=== PATIENT | female | born 1965 | race Caucasian/White ===

== ENCOUNTER → 2017-07-25 | Outpatient (CLI) | payer OTHER | END | disposition home or self-care (01) | LOC: C.PAPS 16:35 | PROVIDERS: ATTEND Obstetrics & Gynecology | DX: Z12.4 Encounter for screening for malignant neoplasm of cervix (principal) ==

== ENCOUNTER → 2017-07-26 | Outpatient (CLI) | payer OTHER ==
[2017-07-26 17:08] LABS: ALT/SGPT 43 U/L (12-78); AST/SGOT 23 U/L (15-37); BLOOD UREA NITROGEN 8 mg/dl (7-18); CALCIUM 9.2 mg/dl (8.5-10.1); CARBON DIOXIDE 29 mmol/L (21-32); CHLORIDE 105 mmol/L (98-107); CHOLESTEROL 226 mg/dl (0-200); GLUCOSE 76 mg/dl (70-99); POTASSIUM 4.1 mmol/L (3.5-5.1); SODIUM 140 mmol/L (136-145)
[2017-07-26 17:18] LABS: ALB/GLOB RATIO 1.1 (0.9-2); ALKALINE PHOSPHATASE 92 U/L (45-117); CHOLESTEROL/HDL RATIO 6.5; HDL CHOLESTEROL 35 mg/dl; LDL CHOLESTEROL CALCULATED 131 mg/dl; THYROID STIMULATING HORMONE 0.691 uIu/ml (0.300-4.500); TRIGLYCERIDES 298 mg/dl (0-150); VERY LOW DENSITY LIPOPROT CALC 60 mg/dl
== END | disposition home or self-care (01) ==
LOC: C.LAB 14:56
PROVIDERS: ATTEND Internal Medicine
DX: E03.9 Hypothyroidism, unspecified (principal); E78.5 Hyperlipidemia, unspecified

== ENCOUNTER → 2018-06-05 | Day surgery (SDC) | payer OTHER ==
[2018-06-04 14:52] VITALS: Ht 176.5 cm; Wt 78.6 kg
[~2018-06-05] VITALS: Ht 176.5 cm; Wt 78.6 kg
[~2018-06-05] MED LIST: AMPH20TA2 PO; ASCO500T3 PO; ATOR10TA82 PO; B-COTAB18 PO; BUPR-79 PO; CALC500C70 PO; CONJ.6255 PO; ESCI1TAB10 PO; FLUT50SP45 NAE; LEVO50TA6 PO; LIDOCAINE HCL 2% 2 ML VIAL (20MG/ML) ONE; MIDAZOLAM HCL 1 MG/ML 2ML VIAL ONE; MULT-580 PO; OMEG10007 PO; ONDANSETRON INJ 2 MG/ML 2 ML VIAL ONE; PANT40TA PO; PROPOFOL IV EMULSION 10 MG/ML 20 ML VIAL ONE; RANI1TAB77 PO; SODIUM CHLORIDE 0.9% 500ML 500 ML IV ONE; SUMA50TA15 PO; TRAM-453 PO; VITA1TAB12 PO
--- NOTE | 2018-06-05 15:36 | Endo History and Physical ---
History & Physical Date of Service: Jun 05, 2018. Chief Complaint: Stomach ulcers Referring Physician: Dr. Staton History of Present Illness 52 yo CF who presents for EGD secondary to stomach ulcers. Past Surgical History Hx Cardiac Surgery: No Hx Internal Defibrillator: No Hx Pacemaker: No Hx Abdominal Surgery: Yes (ANORECTAL MALFORMATION CORRECTIVE SURGERY-INFANT) Hx of Implantable Prosthesis: No Hx Post-Op Nausea and Vomiting: No Hx Cancer Surgery: No Hx Thoracic Surgery: No Hx Orthopedic: No Hx Urinary Tract Surgery: No Social History Smoking Status: Former Smoker Hx Substance Use: Yes (TRAMADOL PRN) Hx Alcohol Use: Yes (OCC SOCIAL) Allergies Coded Allergies: No Known Allergies (Verified , 06/04/18) Current Medications Reported Home Medications Medications Dose Route/Sig Max Daily Dose Days Date Category Ranitidine [address] (Ranitidine HCl) 150 Mg Tab 150 Mg PO BID 06/04/18 Reported Protonix (Pantoprazole Sodium) 40 Mg Tab 40 Mg PO QAM 06/04/18 Reported Hair/Skin/Nails (Multiple Vitamins W/ Minerals) 1 Tab Tab 1 Tab PO QAM 03/25/18 Reported Vitamin E 100 Unit Tab 1 Tab PO QAM 03/25/18 Reported Vitamin C (Ascorbic Acid) 500 Mg Tab 1 Tab PO QPM 03/25/18 Reported Ultram (Tramadol Hcl) 50 Mg Tab 1 Tab PO Q12 PRN 7 03/25/18 Reported Imitrex (Sumatriptan Succinate) 50 Mg Tab 50-100 Mg PO PRN PRN 03/25/18 Reported Prempro 0.625MG/2.5MG (Estrogens Conj/Medroxyprogest Acet) Tab 1 Tab PO QAM 30 03/25/18 Reported Levothyroxine Sodium 50 Mcg Tab 1 Tab PO QAM 30 03/25/18 Reported Allergy Nasal [place] 24 Ho (Fluticasone Propionate (Nasal)) 50 Mcg/Act Spr 1 [place] LIZ BID PRN 03/25/18 Reported [place]-3 (Fish Oil) 1 Ea Cap 1 Cap PO QAM 03/25/18 Reported Lexapro (Escitalopram Oxalate) 20 Mg Tab 20 Mg PO QPM 03/25/18 Reported Os-Chandler 500 Plus D (Calcium/Vitamin D) Tab 1 Tab PO QAM 03/25/18 Reported Vitamin B Complex (B-Complex Vitamins) 1 Tab Tab 1 Tab PO QAM 5/29/18 Reported Lipitor (Atorvastatin Calcium) 10 Mg Tab 1 Tab PO HS 30 03/25/18 Reported Adderall 20MG (Amphetamine-Dextroamphetamine 20MG) 1 Tab Tab 1 Tab PO PRN 30 03/25/18 Reported Wellbutrin Sr (Bupropion HCl) 150 Mg Ertab 150 Mg PO BID 03/25/18 Reported Vital Signs Weight (Kilograms): 78.64 Height (Feet): 5 Height (Inches): 9.5 Date Time Temp Pulse Resp B/P (MAP) Pulse Ox O2 Delivery O2 Flow Rate FiO2 06/05/18 14:46 37 88 18 109/77 (88) 94 Room Air Physical Exam General Appearance: WD/WN, no apparent distress Respiratory/Chest: Auscultation: breath sounds normal Cardiovascular: Heart Auscultation: RRR Abdomen: Bowel Sounds: normal Inspection & Palpation: soft, non-distended, no tenderness, guarding & rebound Assessment and Plan Assessment: 52 yo CF who presents for EGD secondary to stomach ulcers. Plan: Proceed with EGD.
[2018-06-05 16:33] VITALS: BP 118/60; PULSE 77; O2SAT 93
--- NOTE | 2018-06-05 16:33 | GI REPORT ---
Patient Name: Cierra Jacques Procedure Date: 06/05/2018 3:39 PM Date of : 1965 Admit Type: Outpatient Age: 52 Gender: Female Attending MD: Neel Obrien DO Procedure: Upper GI endoscopy Providers: Neel Obrien DO Referring MD: Faustino Staton Indications: Suspected acute gastric ulcer Medicines: Monitored Anesthesia Care Complications: No immediate complications. Estimated Blood Loss: Estimated blood loss: none. Procedure: Pre-Anesthesia Assessment: - Prior to the procedure, a History and Physical was performed, and patient medications and allergies were reviewed. The patient's tolerance of previous anesthesia was also reviewed. The risks and benefits of the procedure and the sedation options and risks were discussed with the patient. All questions were answered, and informed consent was obtained. Prior Anticoagulants: The patient has taken no previous anticoagulant or antiplatelet agents. ASA Grade Assessment: II - A patient with mild systemic disease. After reviewing the risks and benefits, the patient was deemed in satisfactory condition to undergo the procedure. After obtaining informed consent, the endoscope was passed under direct vision. Throughout the procedure, the patient's blood pressure, pulse, and oxygen saturations were monitored continuously. The scope was introduced through the mouth, and advanced to the second part of duodenum. The upper GI endoscopy was accomplished without difficulty. The patient tolerated the procedure well. Findings: The esophagus was normal. A small hiatal hernia was present. Localized mild inflammation characterized by erosions was found in the gastric antrum. Biopsies were taken with a cold forceps for histology. The examined duodenum was normal. Impression: - Normal esophagus. - Small hiatal hernia. - Gastritis. Biopsied. - Normal examined duodenum. Recommendation: - Resume previous diet. - Continue present medications. - Await pathology results. - Return to primary care physician as previously scheduled. Neel Obrien DO 06/05/2018 4:33:31 PM This report has been signed electronically. Note Initiated On: 06/05/2018 3:39 PM Number of Addenda: 0 I attest to the content of the Intraoperative Record and orders documented therein, exceptions below {[id number]}
--- NOTE | 2018-06-05 16:55 | Anesthesiology Progress Note ---
Anesthesia Post Op Note Date & Time Jun 05, 2018 at 16:55 Vital Signs Pain Intensity: 0 Vital Signs Past 12 Hours Date Time Temp Pulse Resp B/P (MAP) Pulse Ox O2 Delivery O2 Flow Rate FiO2 06/05/18 16:33 77 18 118/60 (79) 93 Room Air 06/05/18 16:18 73 18 110/49 (69) 94 Room Air 06/05/18 16:03 37 83 16 91/52 (65) 97 Room Air 06/05/18 14:46 37 88 18 109/77 (88) 94 Room Air Notes Mental Status: alert / awake / arousable, participated in evaluation Pt Amnestic to Procedure: Yes Nausea / Vomiting: adequately controlled Pain: adequately controlled Airway Patency, RR, SpO2: stable & adequate BP & HR: stable & adequate Hydration State: stable & adequate Anesthetic Complications: no major complications apparent
--- NOTE | 2018-06-05 16:59 | Discharge Instructions ---
Endoscopy Patient Instructions Date / Procedure(s) Performed Jun 05, 2018. EGD Allergy Information Coded Allergies: No Known Allergies (Verified , 06/04/18) Discharge Date / Findings Jun 05, 2018. Gastritis s/p biopsies Hiatal hernia Medication Instructions Stopped Medication(s): Patient was told to take 4 meds this am. All others were held. OK to resume all medications today as prescribed Reported Home Medications Medications Dose Route/Sig Max Daily Dose Days Date Category Ranitidine [address] (Ranitidine HCl) 150 Mg Tab 150 Mg PO BID 06/04/18 Reported Protonix (Pantoprazole Sodium) 40 Mg Tab 40 Mg PO QAM 06/04/18 Reported Hair/Skin/Nails (Multiple Vitamins W/ Minerals) 1 Tab Tab 1 Tab PO QAM 03/25/18 Reported Vitamin E 100 Unit Tab 1 Tab PO QAM 03/25/18 Reported Vitamin C (Ascorbic Acid) 500 Mg Tab 1 Tab PO QPM 03/25/18 Reported Ultram (Tramadol Hcl) 50 Mg Tab 1 Tab PO Q12 PRN 7 03/25/18 Reported Imitrex (Sumatriptan Succinate) 50 Mg Tab 50-100 Mg PO PRN PRN 03/25/18 Reported Prempro 0.625MG/2.5MG (Estrogens Conj/Medroxyprogest Acet) Tab 1 Tab PO QAM 30 03/25/18 Reported Levothyroxine Sodium 50 Mcg Tab 1 Tab PO QAM 30 03/25/18 Reported Allergy Nasal [place] 24 Ho (Fluticasone Propionate (Nasal)) 50 Mcg/Act Spr 1 [place] LIZ BID PRN 03/25/18 Reported [place]-3 (Fish Oil) 1 Ea Cap 1 Cap PO QAM 03/25/18 Reported Lexapro (Escitalopram Oxalate) 20 Mg Tab 20 Mg PO QPM 03/25/18 Reported Os-Chandler 500 Plus D (Calcium/Vitamin D) Tab 1 Tab PO QAM 03/25/18 Reported Vitamin B Complex (B-Complex Vitamins) 1 Tab Tab 1 Tab PO QAM 03/25/18 Reported Lipitor (Atorvastatin Calcium) 10 Mg Tab 1 Tab PO HS 30 03/25/18 Reported Adderall 20MG (Amphetamine-Dextroamphetamine 20MG) 1 Tab Tab 1 Tab PO PRN 30 03/25/18 Reported Wellbutrin Sr (Bupropion HCl) 150 Mg Ertab 150 Mg PO BID 03/25/18 Reported Provider Instructions Activity Restrictions - No exercising or heavy lifting for 24 hours. - Do not drink alcohol the day of the procedure. - Do not drive a car or operate machinery until the day after the procedure. - Do not make any important decisions or sign important papers in 24 hours after the procedure. Following Day: - Return to full activity which may include returning to work/school. Diet Start your diet with liquids and light foods (jello, soup, juice, toast). Then eat your usual diet if not nauseated. Treatment For Common After Affects For mild abdominal pain, bloating, or excessive gas: - Rest - Eat lightly - Lie on right side Follow-Up Information Follow-up with Dr. Staton as scheduled Anesthesia Information What You Should Know You have had a procedure that required some medicine to reduce anxiety and discomfort. This treatment is called moderate sedation. After receiving the treatment, you may be sleepy, but you will be able to breathe on your own. The effects of the treatment may last for several hours. Follow these instructions along with Activity/Diet recommendations noted above: * Do NOT do anything where dizziness or clumsiness would be dangerous. * Rest quietly at home today, then you can be up and about tomorrow. * Have a responsible person stay with you the rest of today. * You may have had an I.V. today. If so, you may take the dressing off later today. Recommendations Call your doctor if: * Trouble breathing * Continuous vomiting for more than 24 hours * Temperature above 101 degrees * Severe abdominal pain or bloating * Pain not relieved by pain medicine ordered * There is increased drainage or redness from any incision * A large amount of rectal bleeding greater than 2-3 tablespoons. (If you had a polyp/s removed or have hemorrhoids, a small amount of blood - from the rectum is to be expected.) * You have any unanswered questions or concerns. IN THE EVENT OF A SERIOUS EMERGENCY, GO TO THE NEAREST EMERGENCY ROOM Your discharge instructions were prepared by provider Neel Obrien. Patient Instructions Signature Page Cierra Jacques Patient (or Guardian) Signature/Date: I have read and understand the instructions given to me by my caregivers. Caregiver/RN/Doctor Signature/Date: The above-named patient and/or guardian has received patient instructions on this date. + Original Patient Signature Page (only) stays with chart. Please make copy for patient.
== END | disposition home or self-care (01) ==
LOC: C.GI 14:04
PROVIDERS: ATTEND Internal Medicine
DX: K25.9 Gastric ulcer, unspecified as acute or chronic, without hemorrhage or perforation (principal); K44.9 Diaphragmatic hernia without obstruction or gangrene; K29.70 Gastritis, unspecified, without bleeding; Z87.891 Personal history of nicotine dependence; Z79.899 Other long term (current) drug therapy

== ENCOUNTER 2019-02-18 06:20 | Observation (INO) ==
--- NOTE | 2019-02-17 12:07 | Anesthesiology Consultation ---
Date of Service February 17, 2019 Assessment & Plan (1) Encounter for pre-operative examination: CHECK TEST AM DOS Chart Review Chart Review: Acceptable Risk for Surgery and Patient NOT seen in Pre Admission Testing History Surgery Operation Date: 02/18/19 07:30 Proposed Procedures p Robotic Laparoscopic Kathy Fundoplication - Jose Rafael Campbell MD, FACS s with Esophagogastroduodenoscopy - Jose Rafael Campbell MD, FACS Height/Weight Height: 5 ft 9.5 in Weight: 78.471 kg Allergies Allergy/AdvReac Type Severity Reaction Status Date / Time No Known Allergies Allergy Unknown Verified 02/17/19 14:57 Medications Home Medications Medication Instructions Recorded Confirmed Last Taken ascorbic acid (vitamin C) [Vitamin 500 mg PO QAM 02/17/19 02/17/19 Unknown C] atorvastatin 10 mg PO HS 02/17/19 02/17/19 Unknown biotin 1 mg PO QAM 02/17/19 02/17/19 Unknown bupropion HCl 150 mg PO BID 02/17/19 02/17/19 Unknown calcium carbonate-vitamin D3 1 tab PO QAM 02/17/19 02/17/19 Unknown [Calcium 500 + D] conj estrog-medroxyprogest sameera 1 tab PO QAM 02/17/19 02/17/19 Unknown [Prempro] dextroamphetamine-amphetamine 20 mg PO DAILY PRN 02/17/19 02/17/19 Unknown [Adderall] escitalopram oxalate [Lexapro] 20 mg PO QPM 02/17/19 02/17/19 Unknown fluticasone propionate [Flonase 1 spray INTRANASAL DAILY PRN 02/17/19 02/17/19 Unknown Allergy Relief] levothyroxine 50 mcg PO QAM 02/17/19 02/17/19 Unknown omega 4-xbf-tsl-fish oil [Fish Oil] 1 cap PO QAM 02/17/19 02/17/19 Unknown pantoprazole [Protonix] 40 mg PO DAILY PRN 02/17/19 02/17/19 Unknown ranitidine HCl 150 mg PO BID PRN 02/17/19 02/17/19 Unknown sumatriptan succinate [Imitrex] 1 - 2 tab PO DAILY PRN 02/17/19 02/17/19 Unknown tramadol 50 mg PO Q12H PRN 02/17/19 02/17/19 Unknown vitamin B complex 1 cap PO QAM 02/17/19 02/17/19 Unknown vitamin E 400 unit PO DAILY 02/17/19 02/17/19 Unknown Past Medical History Medical History Anxiety Migraines ADHD Hyperlipidemia GERD (gastroesophageal reflux disease) Hypothyroidism IBS (irritable bowel syndrome) Osteoarthritis BACK Scoliosis Past Surgical History Surgical History History of nasal polypectomy History of colonoscopy Social History Smoking Status: Former smoker (QUIT IN 2014, SMOKED FROM [age] YEARS OLD) Smoking cigarettes per day: 20 Testing Electrocardiogram Date: 05/20/18 Findings: + NSR @ (80) Septal infarct, age undetermined. Done at [facility] ED for chest pain (Troponin negative; ruled 2/2 GERD), reviewed by PCP as "normal" at follow-up. Other Testing Chest CT 11/25/18 FINDINGS: Right apical nodular density has resolved. There is a small focus of linear parenchymal scarring as residual. This presumably is postinflammatory. Lungs otherwise are clear. There is no current significant mediastinal or hilar adenopathy. Bilateral breast MR plasties are present. There is diffuse fatty infiltration of liver considered unchanged. There is a small hiatal hernia. IMPRESSION: 1. The right apical nodular density has resolved. 2. Minimal residual linear fibrotic scarring presumably postinflammatory. 3. CT of the chest is otherwise negative. 4. Unchanged fatty replacement of the liver. Laboratory Results Laboratory Tests 02/17/19 02/17/19 13:43 13:43 WBC 8.91 Hgb 14.1 Hct 41.6 Plt Count 215 Sodium 139 Potassium 3.9 Chloride 107 Carbon Dioxide 25 BUN 8 Creatinine 0.96 Glucose 127 H
[~2019-02-18 06:20] MED LIST changes: -AMPH20TA2 PO; -ASCO500T3 PO; -ATOR10TA82 PO; -B-COTAB18 PO; -BUPR-79 PO; -CALC500C70 PO; -CONJ.6255 PO; -ESCI1TAB10 PO; -FLUT50SP45 NAE; -LEVO50TA6 PO; -LIDOCAINE HCL 2% 2 ML VIAL (20MG/ML) ONE; +LR 15ML/HR IV SCH; -MIDAZOLAM HCL 1 MG/ML 2ML VIAL ONE; -MULT-580 PO; -OMEG10007 PO; -ONDANSETRON INJ 2 MG/ML 2 ML VIAL ONE; -PANT40TA PO; -PROPOFOL IV EMULSION 10 MG/ML 20 ML VIAL ONE; -RANI1TAB77 PO; -SODIUM CHLORIDE 0.9% 500ML 500 ML IV ONE; -SUMA50TA15 PO; -TRAM-453 PO; -VITA1TAB12 PO
--- NOTE | 2019-02-18 06:50 | History & Physical Bridge Note ---
Date of Service February 18, 2019 History & Physical Bridge Note I have examined the patient, reviewed the History & Physical and in the interval since the performance of the History & Physical I have noted the following changes of clinical significance: no changes noted
[2019-02-18] MEDS ORDERED: GLYCOPYRROLATE 0.2 MG/ML VIAL ONE ×2 (06:53→08:39)
[2019-02-18] MEDS ORDERED: PROPOFOL IV EMULSION 10 MG/ML 20 ML VIAL IV ONE (06:53)
[2019-02-18] MEDS ORDERED: ONDANSETRON INJ 2 MG/ML 2 ML VIAL ONE (06:53)
[2019-02-18] MEDS ORDERED: DEXAMETHASONE SOD INJ 4 MG/ML VIAL ONE (06:53)
[2019-02-18] MEDS ORDERED: ePHEDrine sulfate 50 MG/ML SYR ONE ×2 (06:53→09:41)
[2019-02-18] MEDS ORDERED: NEOSTIGMINE METHYLSULFATE 5 MG/5 ML SYR ONE (06:53)
[2019-02-18] MEDS ORDERED: ROCURONIUM BROMIDE 10 MG/ML 5 ML VIAL ONE ×2 (06:53→10:05)
[2019-02-18] MEDS ORDERED: MIDAZOLAM HCL 1 MG/ML 2ML VIAL ONE (06:53)
[2019-02-18] MEDS ORDERED: LARYING-O-JET KIT (LTA) ONE (06:53)
[2019-02-18] MEDS ORDERED: LIDOCAINE HCL 2% 2 ML VIAL/AMP(20MG/ML) INFIL ONE ×2 (06:53→11:15)
[2019-02-18] MEDS ORDERED: PHENYLEPHRINE 100MCG/ML 5ML SYR ONE ×2 (06:53→09:41)
[2019-02-18] MEDS ORDERED: fentaNYL citrate 100 MCG/2 ML VIAL ONE ×2 (06:53→08:21)
[2019-02-18] MEDS ORDERED: BUPIVACAINE 0.5 % 5 MG/1 ML MPF 30ML VIAL ONE (07:14)
[2019-02-18] MEDS ORDERED: BUPIVACAINE LIPOSOME 1.3% 266 MG/20 ML VIAL ONE (07:14)
[2019-02-18] MEDS ORDERED: SODIUM CHLORIDE 0.9% PF 50 ML VIAL ONE (07:14)
[2019-02-18] MEDS ORDERED: DEXAMETHASONE SOD INJ 4 MG/ML VIAL IV PRN (07:30)
[2019-02-18] MEDS ORDERED: ePHEDrine sulfate 50 MG/ML AMP IV PRN (07:30)
[2019-02-18] MEDS ORDERED: KETOROLAC 30 MG/ML VIAL IV PRN ×2 (07:30→21:25)
[2019-02-18] MEDS ORDERED: ONDANSETRON INJ 2 MG/ML 2 ML VIAL IV PRN (07:30)
[2019-02-18] MEDS ORDERED: HYDROmorphone INJ 2 MG/ML SYR/VIAL IV PRN (07:30)
[2019-02-18] MEDS ORDERED: ATROPINE SULFATE 0.1 MG/ML 10ML SYR IV PRN (07:30)
[2019-02-18] MEDS ORDERED: HYDROmorphone INJ 2 MG/ML SYR/VIAL ONE (08:20)
[2019-02-18] MEDS ORDERED: CEFAZOLIN 250 MG/ML 1 GM VIAL ONE (08:21)
--- NOTE | 2019-02-18 10:40 | Post Operative Brief Note ---
Immediate Post Op Note v1 Date of Surgery February 18, 2019 Pre & Post Diagnosis Operation Date: 02/18/19 07:30 Pre-Op Diagnosis: Gastroesophageal Reflux Disease Post-Op Diagnosis: Gastroesophageal Reflux Disease Procedure Operation Date: 02/18/19 07:30 Actual Procedures p Robotic Laparoscopic Kathy Fundoplication - Jose Rafael Campbell MD, FACS s with Esophagogastroduodenoscopy - Jose Rafael Campbell MD, FACS Surgeon Jose Rafael Campbell MD, FACS Inset Cutter Ori MATTSON Estimated Blood Loss 30 Findings Consistent with Post-Op Diagnosis Drains Lance Catheter
[2019-02-18] MEDS ORDERED: METOCLOPRAMIDE HCL INJ 5 MG/ML 2 ML VIAL IV ONE (10:55)
--- NOTE | 2019-02-18 11:27 | XRay Report ---
XR chest 1V portable CLINICAL HISTORY: s/p ginny postoperative COMPARISON STUDY: No previous studies for comparison. FINDINGS: 50% left-sided pneumothorax. Potential compressive atelectasis left lung base. Right lung i s clear. IMPRESSION: 50% left-sided pneumothorax. No significant cardiac silhouette shift. The above report was generated using voice recognition software. It may contain grammatical, syntax or spelling errors. Electronically signed by: Sin Castellanos M.D. 02/18/2019 11:26 AM
[2019-02-18] MEDS ORDERED: METOCLOPRAMIDE HCL INJ 5 MG/ML 2 ML VIAL ONE (11:39)
--- NOTE | 2019-02-18 11:39 | XRay Report ---
XR chest 1V portable CLINICAL HISTORY: pneumothorax pneumothorax COMPARISON STUDY: 02/18/2019 11:09 AM FINDINGS: Near complete reinflation of the left lung. Residual left midlung and basilar atelectasis. Small residual left apex with a maximum pleural separation of 5 mm. The right lung remains clear. IMPRESSION: 1. Considerable improvement in the appearance of the left hemithorax. 2. Minimal residual left apical pneumothorax. 3. Scattered left hemithoracic atelectatic change. The above report was generated using voice recognition software. It may contain grammatical, syntax or spelling errors. Electronically signed by: Sin Castellanos M.D. 02/18/2019 11:38 AM
[2019-02-18] MEDS: fentaNYL citrate 100 MCG/2 ML VIAL IV PRN ×2 (11:59→12:07)
[2019-02-18] MEDS ORDERED: FLUTICASONE PROPIONATE NA SPR 16 GM BTL PRN (12:48)
[2019-02-18] MEDS ORDERED: PANTOprazole 40 MG TAB PO PRN (12:48)
[2019-02-18] MEDS ORDERED: AMPHETAMINE ASP/SULF/DEXTRAMPH 10 MG TAB PO PRN (12:48)
[2019-02-18] MEDS ORDERED: MoRPHine SULFATE 2 MG/ML CARP IV PRN (12:48)
[2019-02-18] MEDS ORDERED: SUMAtriptan succinate 50 MG TAB PO PRN (12:48)
--- NOTE | 2019-02-18 13:17 | Anesthesiology Progress Note ---
Date of Service February 18, 2019 Anesthesia Post Procedure Vital Signs Vital Signs: Temp Pulse Pulse Resp BP BP Pulse Ox 02/18/19 13:11 37.1 C 90 18 118/74 94 02/18/19 12:30 93 H 16 105/73 96 02/18/19 12:20 36.8 C 100 H 17 110/65 95 02/18/19 12:10 96 H 16 104/71 94 02/18/19 12:01 93 H 21 121/61 96 02/18/19 11:50 91 H 21 93/72 L 94 02/18/19 11:40 93 H 18 111/71 97 02/18/19 11:30 92 H 15 117/67 100 02/18/19 11:20 91 H 18 128/77 96 02/18/19 11:10 87 15 93/84 L 87 L 02/18/19 11:02 36.4 C L 96 H 19 115/78 90 02/18/19 07:01 36.6 C 84 20 120/76 99 Pain Intensity Medial Abdomen: Pain Intensity: 3 Notes Mental Status: alert / awake / arousable and participated in evaluation Patient Amnestic to Procedure: Yes Nausea / Vomiting: adequately controlled Pain: adequately controlled Airway Patency, RR, SpO2: stable & adequate BP & HR: stable & adequate Hydration State: stable & adequate Anesthetic Complications: no major complications apparent
[2019-02-18] MEDS: D5W AND 1/2NSS 1,000 ML IV SCH (13:48)
[2019-02-18] MEDS: ACETAMINOPHEN 1,000 MG/100 ML VIAL IV SCH ×2 (13:48→21:02)
[2019-02-18] MEDS: ONDANSETRON INJ 2 MG/ML 2 ML VIAL IV SCH ×3 (13:48→22:08)
[2019-02-18] MEDS: OXYCODONE HCL IR 5 MG TAB (IMMEDIATE RELEASE) PO PRN (18:55)
[2019-02-18] MEDS: METOCLOPRAMIDE HCL INJ 5 MG/ML 2 ML VIAL IV SCH (19:37)
[2019-02-18] MEDS ORDERED: ATORVASTATIN 10 MG TAB PO SCH (21:00)
[2019-02-18] MEDS ORDERED: ESCITALOPRAM OXALATE 20 MG TAB PO SCH (21:00)
[2019-02-18] MEDS: BuPROPion SR 150 MG TABCR PO SCH (21:58)
[2019-02-18] MEDS: DOCUSATE SODIUM 100 MG CAP PO SCH (21:58)
[2019-02-19] MEDS: D5W AND 1/2NSS 1,000 ML IV SCH ×2 (00:08→09:18)
[2019-02-19] MEDS: ONDANSETRON INJ 2 MG/ML 2 ML VIAL IV SCH ×3 (01:42→09:09)
[2019-02-19] MEDS: OXYCODONE HCL IR 5 MG TAB (IMMEDIATE RELEASE) PO PRN ×2 (01:43→11:17)
--- NOTE | 2019-02-19 02:33 | Operative Report ---
DATE OF OPERATION: 02/18/2019 PREOPERATIVE DIAGNOSES: Gastroesophageal reflux with hiatal hernia and unresponsive to medical management. POSTOPERATIVE DIAGNOSES: Gastroesophageal reflux with hiatal hernia and unresponsive to medical management. PROCEDURE: Robot-assisted laparoscopic Kathy fundoplication. SURGEON: Jose Rafael Campbell MD ENT NURSE: TWILA Barrios (Mr. Mims was present for the entire case and was at the patient's bedside while I was at the robotic console). ANESTHESIA: General anesthesia, endotracheal intubation. INDICATIONS FOR PROCEDURE AND FINDINGS: This patient is a 53-year-old female who I have been following for quite some time, who has had gastroesophageal reflux for a long period of time. It has worsened despite medical management. She underwent esophagogastroduodenoscopy which showed gastritis and a hiatal hernia. Her reflux was unresponsive to proton pump inhibitors and H2 blockers. She had gotten worse and occasionally would regurgitate at night on bed and have a mouth full of bile. We elected to proceed with elective procedure. On 02/18/2019, the patient underwent an uncomplicated robot-assisted laparoscopic Kathy fundoplication. She had a small hiatal hernia which was reduced. We repaired the hiatal defect and placed a small bioprosthetic patch across this repair. She had a relatively floppy Kathy performed. She tolerated it well and was awakened without difficulty from anesthesia. She was seen to have a left pneumothorax postoperative, which we aspirated in the PACU. Her x-ray showed complete resolution. She tolerated this procedure quite well. PROCEDURE IN DETAIL: The patient was brought to the Operating Room and placed in supine position. General anesthesia was induced and endotracheal intubation was performed. After appropriate timeout had been called and prophylactic antibiotics given, the table was positioned and the patient was prepped and draped in usual sterile fashion. A 5 mm scope was placed a few centimeters above the umbilicus under laparoscopic guidance. Upon entering the abdominal area, left lobe of the liver was seen to be rather large. Two 8 mm ports were placed in midclavicular line just below the costal margin after we insufflated carbon dioxide. A 5 mm ports were placed laterally. The right was for the liver retractor and 5 mm thoracic grasper for the robot. A 5 mm port in midline was switched out for a 12 mm camera port. We also placed an contact center assistant's port in the left paraumbilical area. The patient was then placed in reverse Trendelenburg and then we docked the robot. We had very good visualization except the left lobe of the liver made it a bit difficult. Immediately upon entering and inspecting the abdomen, we took down the short gastrics with the vessel sealer. This worked very nicely and took this all the way up to the diaphragmatic heather. So, on the left side, we cleaned this off completely. We then retracted the stomach to the left and took down the pars flaccida with the cautery and went all the way down to the hiatus. The hiatus was freed up quite nicely and we identified the vagus nerves. A Nicole drain was placed around the distal esophagus. We had plenty of esophageal length in the abdomen. There was a hiatal defect and I repaired this using a 0 silk in a pqajbj-rs-bndde fashion x 1 and then a simple ctrjpy-hq-sksab fashion x2. I then selected a piece of OviTex bioprosthetic graft. I cut a small segment about 3 x 2 cm and reinforced our hiatal repair. The posterior fundus was then brought around in a retroesophageal fashion and 2-0 silk was used to create a floppy Kathy by suturing the anterior fundus to the esophagus and posterior fundus. I placed 2 sutures. This looked very good. It was not too tight. I placed 1 more 2-0 silk suture to bring the fundus up to the anterior crura to take any tension off of the repair. She tolerated this quite well. We closely inspected the rest of the abdomen and saw no abnormalities. The ports were removed. The camera was undocked and the patient was straightened out. We used a #1 PDS to close the assistance port and the camera port. A 4-0 Monocryl was used in running subcuticular fashion to approximate the wound edges. The patient was awakened without difficulty and was transported to the Postanesthesia Care Unit and x-ray was obtained which showed she had a fairly significant pneumothorax about 50%. I did have a small defect in the right pleura, but we repaired this with a 3-0 Vicryl during the case. I did not see anything in the left and was a bit surprised that she had this, but at any rate, she was stable. While she was under the effects of anesthesia, I prepped and draped her and did an anterior approach as this was an apical pneumothorax. We did this on the left anterior chest. I anesthetized skin, subcutaneous tissues and went down with a needle and got air back. I placed a soft J-tipped guidewire through the needle and the needle removed. Triple lumen catheter was slid over the guidewire. The guidewire removed. I then attached this to 1 liter suction bottle and initially it could be seen that air being stuck and this stopped. I removed this. We placed antimicrobial dressing on this. Chest x-ray showed complete resolution. The patient was in stable condition and was transferred up to her room when she was stabilized. I attest to the content of the Intraoperative Record and any orders documented therein. Any exception s are noted below.
[2019-02-19] MEDS: METOCLOPRAMIDE HCL INJ 5 MG/ML 2 ML VIAL IV SCH (04:05)
[2019-02-19] MEDS: ACETAMINOPHEN 1,000 MG/100 ML VIAL IV SCH (06:07)
[2019-02-19] MEDS ORDERED: LEVOTHYROXINE SODIUM 50 MCG TABLET PO SCH (06:30)
[2019-02-19 07:09] VITALS: BP 95/60; PULSE 85; TEMP 98.6; O2SAT 91
--- NOTE | 2019-02-19 07:17 | XRay Report ---
XR chest 1V portable CLINICAL HISTORY: pneumothorax COMPARISON STUDY: 02/18/2019 FINDINGS: The heart remains normal in size. There is a tiny left apical pneumothorax the pleural sepa ration of 2 mm. There are developing patchy airspace opacities the right lung base. There are persist ent patchy airspace opacities at the left lung base. There is improved aeration of the left upper heike g zone.[ IMPRESSION: 1. Interval decrease in the size of the tiny left apical pneumothorax which has a pleural separation of 2 mm 2. Persistent patchy airspace opacities the left lung base with improving aeration of the left upper lung zone 2. Developing patchy airspace opacities the right lung base Electronically signed by: Aric Vyas M.D. 02/19/2019 7:16 AM
[2019-02-19 07:34] LABS: Hematocrit (blood only) 34.8 % (37-47); Hemoglobin 11.7 g/dL (12.0-16.0); Mean Corpuscular Hgb Conc 33.6 g/dL (32-36); Mean Corpuscular Volume 88.3 fL (80-100); Mean Platelet Volume 9.9 fL (7.4-10.4); Platelet Count 164 K/uL (130-400); RDW Coefficient of Variation 13.1 % (11.5-14.5); RDW Standard Deviation 42.1 fL (36.4-46.3); Red Blood Count 3.94 M/uL (4.2-5.4); White Blood Count 14.52 K/uL (4.8-10.8)
[2019-02-19 07:48] LABS: Partial Thromboplastin Ratio 0.9; Partial Thromboplastin Time 25.7 Seconds (21.0-31.0); Prothrombin Time 10.5 Seconds (9.0-12.0)
[2019-02-19 08:02] LABS: Creatinine Clr Calc Pharmacy 93.3 ml/min; Est GFR (African American) 106.2; Est GFR (Non-African American) 91.6
--- NOTE | 2019-02-19 08:18 | Anesthesiology Progress Note ---
Date of Service February 19, 2019 Anesthesia Post Procedure Vital Signs Vital Signs: Temp Pulse Pulse Resp BP BP Pulse Ox 02/19/19 07:08 37.0 C 85 16 95/60 L 91 02/19/19 04:07 36.8 C 94 H 16 110/68 92 02/18/19 23:52 36.5 C 93 H 16 103/62 90 02/18/19 21:20 108 H 128/54 L 93 02/18/19 21:09 37 C 111 H 20 135/58 L 93 02/18/19 19:48 36.9 C 98 H 17 120/70 94 02/18/19 19:00 02/18/19 17:48 36.7 C 84 17 112/69 97 02/18/19 15:45 36.6 C 90 17 106/66 96 02/18/19 14:37 36.6 C 93 H 16 105/65 93 02/18/19 13:43 95 H 16 114/70 95 02/18/19 13:11 37.1 C 90 18 118/74 94 02/18/19 12:40 37.2 C 92 H 16 107/60 97 02/18/19 12:30 93 H 16 105/73 96 02/18/19 12:20 36.8 C 100 H 17 110/65 95 02/18/19 12:10 96 H 16 104/71 94 02/18/19 12:01 93 H 21 121/61 96 02/18/19 11:50 91 H 21 93/72 L 94 02/18/19 11:40 93 H 18 111/71 97 02/18/19 11:30 92 H 15 117/67 100 02/18/19 11:20 91 H 18 128/77 96 02/18/19 11:10 87 15 93/84 L 87 L 02/18/19 11:02 36.4 C L 96 H 19 115/78 90 Pulse Ox 02/19/19 07:08 02/19/19 04:07 02/18/19 23:52 02/18/19 21:20 02/18/19 21:09 02/18/19 19:48 02/18/19 19:00 92 02/18/19 17:48 02/18/19 15:45 02/18/19 14:37 02/18/19 13:43 02/18/19 13:11 02/18/19 12:40 02/18/19 12:30 02/18/19 12:20 02/18/19 12:10 02/18/19 12:01 02/18/19 11:50 02/18/19 11:40 02/18/19 11:30 02/18/19 11:20 02/18/19 11:10 02/18/19 11:02 Pain Intensity Medial Abdomen: Pain Intensity: 3 Notes Mental Status: alert / awake / arousable and participated in evaluation Nausea / Vomiting: adequately controlled Pain: adequately controlled Airway Patency, RR, SpO2: stable & adequate BP & HR: stable & adequate Hydration State: stable & adequate
[2019-02-19] MEDS ORDERED: ENOXAPARIN INJ 40 MG/0.4 ML SYR SQ SCH (09:00)
[2019-02-19] MEDS: BuPROPion SR 150 MG TABCR PO SCH (09:09)
[2019-02-19] MEDS: DOCUSATE SODIUM 100 MG CAP PO SCH (09:09)
--- NOTE | 2019-02-19 22:03 | Discharge Summary ---
DISCHARGE DIAGNOSES: Hiatal hernia with gastroesophageal reflux disease, unresponsive to medical management. HOSPITAL COURSE: Cierra is a very nice 53-year-old female who has a longstanding history of gastroesophageal reflux disease whose symptoms have worsened. We elected to proceed with elective repair. On 02/18/2019, the patient underwent an uncomplicated robot-assisted laparoscopic repair of her hiatal hernia which was a bit larger than I thought it would be. I used a small piece of bioprosthetic mesh to reinforce this. We did a Kathy fundoplication without difficulty. She tolerated it well. Overnight, she had some pain in her abdominal area but actually did quite well. She had no difficulty swallowing liquids. She was ambulating in the hallway on room air. She looked quite good and I discharged her on postop day #1. I will see her back next week. We will get a barium swallow before I see her back.
--- OUTSIDE RECORDS SUMMARY | 2019-02-23 20:00 | External Medical Summary | Continuity of Care Document ---
:1965 Author Name Slick Del Real, Provider Address Unavailable Unavailable , Care Team Providers Name Role Phone Unavailable Unavailable Unavailable Brionna Del Real, [email or web address] Rabia BROWN, Amada Unavailable [email or web address] PATEL, [email or web address] SHANTA BENNETT M.D., BEL Lew Unavailable Un available Unavailable Unavailable Unavailable Problems Postmenopausal status (V49.81) (Z78.0) Intraductal papilloma of breast (217) (D24.9) Encounter for screening for lipoid disorders (V77.91) (Z13.2 20) Anxiety (300.00) (F41.9) Scoliosis (737.30) (M41.9) Attention deficit (799.51) (R41.840) Hyperlipidemia (272.4) (E78.5) Hypothyroidism (244.9) (E03.9) Restless legs syndrome (333.94) (G25.81) Stomach ulcer (531.90) (K25.9) Gastritis (535.50) (K29.70) Abdominal bloating (787.3) (R14.0) Hiatal hernia (553.3) (K44.9) GERD without esophagitis (530.81) (K21.9) Low back pain (724.2) (M54.5) Irritable bowel syndrome (564.1) (K58.9) Nocturnal oxygen desaturation (327.24) (G47.34) Breast cancer screening (V76.10) (Z12.31) Change, skin texture (782.8) (R23.4) Impaired fasting glucose (790.21) (R73.01) Encounter for routine gynecological examination (V72.31) (Z0 1.419) Migraine headache (346.90) (G43.909) Snoring (786.09) (R06.83) Daytime hypersomnia (780.54) (G47.19) Influenza vaccine needed (V04.81) (Z23) Fatigue (780.79) (R53.83) Allergic rhinitis (477.9) (J30.9) Premenstrual dysphoric disorder (625.4) (F32.81) Lung nodule (793.11) (R91.1) Allergies and Adverse Reactions No Known Drug Allergies (Allergy) Animal dander (Allergy) Animal dander - Cats (Allergy) Animal dander - Dogs (Allergy) Mold (Allergy) Ragweed (Allergy) Medications Escitalopram Oxalate 20 MG Oral Tablet; TAKE 1 TABLET BY MOUTH EVERY DAY IN THE MORNING Nasima Staton Start: 27-Sep-2014 Quantity: 90 Refills: 1 Calcium 500+D 500-400 MG-UNIT Oral Tablet , Susi.DDmitry Start: 31-Jan-2015 Refills: 0 B Complex Plus Oral Tablet , Susi.DDmitry Start: 2014 Refills: 0 raNITIdine HCl - 150 MG Oral Tablet; TAKE 1 TABLET TWI CE DAILY. AMANDA Burrows Start: 15-Jul-2018 Quantity: 60 Refills: 5 Pantoprazole Sodium 40 MG Oral Tablet Delayed Release; TAKE 1 TABLET DAILY. AMANDA Burrows Start: 15-Jul-2018 Quantity: 30 Refills: 5 Amphetamine-Dextroamphetamine 20 MG Oral Tablet; TAKE 1 TABLET DAILY. Nasima Staton Start: 29-Apr-2018 Quantity: 90 Refills: 0 traMADol HCl - 50 MG Oral Tablet; TAKE 1 TABLET EVERY 12 HOURS NEEDED FOR PAIN Nasima Staton Start: 27-Sep-2014 Quantity: 45 Refills: 1 Vitamin E 100 UNIT Oral Tablet; TAKE 1 TABLET DAILY. Nasima Start: 02-Sep-2014 Refills: 0 Vitamin C 500 MG Oral Tablet; TAKE 1 TABLET DAILY. Nasima Start: 02-Sep-2014 Refills: 0 Benadryl Allergy 25 MG Oral Tablet; take 1( 50mg) daily as n Nasima patino Start: 02-Sep-2014 Refills: 0 Fish Oil 1000 MG Oral Capsule; TAKE 1 CAPSULE DAILY. Nasima Start: 02-Sep-2014 Refills: 0 RA Melatonin 10 MG Oral Tablet; Take 1 tablet daily , M.DDmitry Start: 02-Sep-2014 Refills: 0 Fluticasone Propionate 50 MCG/ACT Nasal Suspension; USE 1 SPRAY IN EACH NOSTRIL TWICE DAILY. Nasima Staton Start: 13-Apr-2014 Quantity: 16 Refills: 1 Prempro 0.625-2.5 MG Oral Tablet; TAKE 1 TABLET DAILY DIRECTED. DO Amada Camarillo Start: 18-Apr-2016 Quantity: 3 28 Tablet Pack Refills: 0 Levothyroxine Sodium 50 MCG Oral Tablet; TAKE 1 TABLET DAILY FOR HYPOTHYROIDISM- EARLY IN THE MORNING ON EMPTY STOMACH Nasima Staton Start: 14-Jan-2014 Quantity: 30 Refills: 5 Atorvastatin Calcium 10 MG Oral Tablet; TAKE 1 TABLET DAILY AT BEDTIME. Nasima Staton Start: 27-Sep-2014 Quantity: 90 Refills: 1 buPROPion HCl ER (SR) 150 MG Oral Tablet Extended Release 12 Hour; TAKE 1 TABLET TWICE DAILY. Nasima Start: 29-Apr-2018 Quantity: 90 Refills: 2 SUMAtriptan Succinate 50 MG Oral Tablet; TAKE 1 OR 2 TABLETS AT ONSET OF A MIGRAINE HEADACE. MAY REPEAT X 1 DOSE ONLY IF HEADACHE PERSISTS AFTER 2 HOURS. MAX 200 mg/day. Nasima Staton Start: 01-Aug-2015 Quantity: 9 Refills: 1 Procedures Barium Swallow Date: 19-Feb-2019 History of Breast Surgery Status: Comple bryan Enlargement Procedure With Prosthetic Implant History of Extensive Excision Of Status: Completed Nasal Polyps History of Oral Surgery Tooth Status: Co mpleted Extraction History of Oral Surgery Status: Complete d History of Ginny fundoplication Status: Completed 18-Feb-2019 0:00 laparoscopic Immunizations Adacel 5-2-15.5 LF-MCG/0.5 Intramuscular Suspension On: 20-M 14:21 Lot #: [id number], SANOFI PA[employer]UR Influenza On: 01-Aug-2015 8:44 Lot #: [id number], SANOFI PASTEUR Family History Mother Family history of Diabetes Mellitus (V18.0) Status: Active Unknown Family Member Family history of Diabetes Mellitus (V18.0) Status: Active Comments: Family History Sister Family history of depression (V17.0) (Z81.8) Status: Active Family history of anxiety disorder (V17.0) (Z81.8) Status: A ctive Grandfather Family history of pancreatic cancer (V16.0) (Z80.0) Status: Active Grandmother Family history of cardiac disorder (V17.49) (Z82.49) Status: Active Social History - Smoking Status Former smoker Plan of Treatment Planned Observations Planned Goals not documented Results Barium Swallow Laboratory: [facility] Diagnostic Imaging [address] [facility] 10-Feb-2019 11:30 (BARIUM SWALLOW) ESOPHAGUS [place], [place] [phone] Fluoroscopy Report Patient: LIZ MAGANA Admit Date: MR#: [id number] Address1: [address] [place] [address] Acct ID:[id number] Address2: [facility] [address] Date: 1965 [facility] Zip: [place] [id number] Age: 53 Location: [facility] Sex: F Room/Bed: Att Phy: Uche Mims PA-C Diagnosis : GERD Kiara Phy: RV. Staton MD Servi ce Date: 02/10/19 Fam Phy: Interpreting Phy: Sin Castellanos MD Admit Phy: Ordering Phy: Uche Mims PA-C cc: FL barium swallow CLINICAL HISTORY: GERDreflux COMPARISON STUDY: None FLUOROSCOPY TIME: 1.1 minutes NUMBER OF FLUOROSCOPIC IMAGES: 21 FINDINGS: Patient initiates his swallowing function well. No evidence for aspiration or neuromuscular dysfunction. Mild esophageal spasm at its mid to distal aspect. Very small hiatal hernia. No significant gastroesophageal reflux. IMPRESSION: 1. Small hiatal hernia. 2. No significant reflux. 3. Mild mid and distal esophageal dysmotility/spasm. The above report was generated using voice recognition software. It may contain grammatical, syntax or spelling errors. Electronically signed by: Sin Castellanos M.D. 02/10/2019 11:31 AM Dictated: 02/10/19 1130 Transcribed: 02/10/191129 CBC With DIFF Laboratory: [facility] [address] [facility] [address] tel: 17-Feb-2019 13:43 WBC 8.91 K/uL Range: 4.8-10.8 K/u L RBC 4.70 {M/uL} Range: 4.2-5.4 M/uL HEMOGLOBIN 14.1 g/dL Range: 12.0-16.0 g /dL HEMATOCRIT 41.6 % Range: 37-47 % MCV 88.5 fL Range: 80-100 fL MCH 30.0 pg Range: 25-34 pg MEAN CORPUSCULAR HGB CONC 33.9 Range: 3 2-36 g/dL g/dL RED CELL DISTRIBUTION WIDTH SD Range: 3 6.4-46.3 fL 41.4 fL RED CELL DISTRIBUTION WIDTH CV Range: 1 1.5-14.5 % 12.8 % PLATELET COUNT 215 K/uL Range: 130-400 K/uL MEAN PLATELET VOLUME 10.4 fL Range: 7.4 -10.4 fL NEUT % 51.7 % Range: % LYMPH % 38.4 % Range: % MONO % 8.0 % Range: % EOS % 1.3 % Range: % BASO % 0.4 % Range: % IG% 0.2 % Range: % Comments: IG paramet er reflects the combination of Metas, Myelos andPromyelocytes. Neutrophils (Auto) 4.60 K/uL Range: 1. 4-6.5 K/uL LYMPH ABS # 3.42 K/uL (above Range: 1.2 -3.4 K/uL high threshold) MONO ABS # 0.71 K/uL (above Range: 0.11 -0.59 K/uL high threshold) EOS ABS # 0.12 K/uL Range: 0-0.5 K/uL BASO ABS # 0.04 K/uL Range: 0-0.2 K/uL IG# 0.02 K/uL Range: 0.00-0.02 K/ uL Basic Metabolic Panel Laboratory: [facility] [address] [facility] [address] tel: 17-Feb-2019 13:43 SODIUM 139 mmol/L Range: 136-145 mmol /L POTASSIUM 3.9 mmol/L Range: 3.5-5.1 mmo l/L CHLORIDE 107 mmol/L Range: 98-107 mmol/ L CARBON DIOXIDE 25 mmol/L Range: 21-32 m mol/L ANION GAP 8.0 Range: 3-11 BLOOD UREA NITROGEN 8 mg/dl Range: 7-18 mg/dl CREATININE 0.96 mg/dl Range: 0.6-1.2 mg /dl Estimated GFR ( Comments: Units: ml/min per Chilean) 78.8 1.73 meters squaredT he estimated GFR (CKD-E PI equation) has not be en validatedfor inpatie nt settings and may not be an accurate reflectiono f renal function in critical ly ill patients or those wi thrapidly changing renal funct ion (e.g. ROBINSON). Estimated GFR (Non- Comments: Uni ts: ml/min per [place]an) 68.0 1.73 meters squaredT he estimated GFR (CKD-E PI equation) has not be en validatedfor inpatie nt settings and may not be an accurate reflectiono f renal function in critical ly ill patients or those wi thrapidly changing renal funct ion (e.g. ROBINSON). BUN/CREATININE RATIO 8.7 (below Range: 10-20 low threshold) GLUCOSE 127 mg/dl (above high Range: 70 -99 mg/dl threshold) CALCIUM 9.1 mg/dl Range: 8.5-10.1 mg/ dl TYPE/SCREEN Hold Profile Laboratory: [facility] Laboratory [address] [facility]. [facility] [address] tel: 18-Feb-2019 6:31 TYPE/SCREEN HOLD PROFILE Run: 02/18/19 0737 [facility] Pathology Report -----Name: LIZ MAGANA Susi Age/Sex: 53/F [id number] Unit: [id number] Status: REG [facility] Room/Bed:Re02/18/19 Disch: Att Dr: Jose Rafael Campbell MD - Spec: [id number] Collected: 02/18/19Received: 02/18/[address]: Jose Rafael Campbell, [facility] To: RV. Brionna, Presley Prods: (NO ORDERED PRODUCTS)Ord Tests: TSQueries: Transfusion of Blood, Platelets, FFP in Past 3 Months? Unknown ------Test Result Flag Reference Site ---Blood Type O PosAntibody Screen NEGATIVE -------Tests: Date Time Order Change Action 02/17/19 1519 TS 1 NEW [id number] END OF REPORT , Urine - Point Laboratory: [facility] Laboratory Of Care (Pending) [address] [facility] [address] tel: 18-Feb-2019 0:00 , Urine (Point of Range: NEG Care) NEG X-Ray Chest 1 View Laboratory: [facility] Diagnostic Portable Imaging [address] [facility] 18-Feb-2019 11:25 X-Ray Chest 1 VW Portable (CXR1P) [place], [place] [phone] XRay Report Patient: LIZ MAGANA Admit Date: MR#: [id number] Address1: [address] [place] [address] Acct ID:[id number] Address2: [address] Date: 1965 [facility] Zip: [place] [address] Age: 53 Location: [facility] Sex: F Room/Bed: Att Phy: Jose Rafael Campbell MD Diagnosis: Gastroesophageal Reflux Disease Kiara Phy: RV. Staton MD Servi ce Date: 02/18/19 Fam Phy: Interpreting Phy: Sin Castellanos MD Admit Phy: Ordering Phy: Uche Mims PA-C cc: XR chest 1V portable CLINICAL HISTORY: s/p ginny postoperative COMPARISON STUDY: No previous studies for comparison. FINDINGS: 50% left-sided pneumothorax. Potential compressive atelectasis left lung base. Right lungis clear. IMPRESSION: 50% left-sided pneumothorax. No significant cardiac silhouette shift. The above report was generated using voice recognition software. It may contain grammatical, syntax or spelling errors. Electronically signed by: Sin Castellanos M.D. 02/18/2019 11:26 AM Dictated: 02/18/19 1125 Transcribed: 02/18/19 1125 X-Ray Chest 1 View Laboratory: [facility] Diagnostic Portable Imaging [address] [facility] 18-Feb-2019 11:36 X-Ray Chest 1 VW Portable (CXR1P) [facility], [place] [phone] XRay Report Patient: LIZ MAGANA Admit Date: MR#: [id number] Address1: [address] [place] [address] Acct ID:[id number] Address2: [address] Date: 1965 [facility] Zip: [place] [address] Age: 53 Location: [facility] Sex: F Room/Bed: Att Phy: Jose Rafael Campbell MD Diagnosis: Gastroesophageal Reflux Disease Kiara Phy: RV. Staton MD Servi ce Date: 02/18/19 Fam Phy: Interpreting Phy: Sin Castellanos MD Admit Phy: Ordering Phy: Uche Mims PA-C cc: XR chest 1V portable CLINICAL HISTORY: pneumothorax pneumothorax COMPARISON STUDY: 02/18/2019 11:09 AM FINDINGS: Near complete reinflation of the left lung. Residual left midlung and basilar atelectasis. Small residual left apex with a maximum pleural separation of 5 mm. The right lung remains clear. IMPRESSION: 1. Considerable improvement in the appearance of the left hemithorax. 2. Minimal residual left apical pneumothorax. 3. Scattered left hemithoracic atelectatic change. The above report was generated using voice recognition software. It may contain grammatical, syntax or spelling errors. Electronically signed by: Sin Castellanos M.D. 02/18/2019 11:38 AM Dictated: 02/18/19 1136 Transcribed: 02/18/19 1136 X-Ray Chest 1 View Laboratory: [facility] Diagnostic Portable Imaging [address] [facility] 19-Feb-2019 7:14 X-Ray Chest 1 VW Portable (CXR1P) [facility], [place] [phone] XRay Report Patient: LIZ MAGANA Admit Date: MR#: [id number] Address1: [address] Acct ID:[id number] Address2: [address] Date: 1965 [facility] Zip: [place] [address] Age: 53 Location: 3W Sex: F Room/Bed: [facility] Att Phy: Jose Rafael Campbell MD Diagnosis: Gastroesophageal Reflux Disease Kiara Phy: RV. Staton MD Servi ce Date: 02/19/19 Fam Phy: Interpreting Phy: Aric Vyas MD Admit Phy: Jose Rafael Campbell MD Ordering Phy: Uche Mims PA-C cc: XR chest 1V portable CLINICAL HISTORY: pneumothorax COMPARISON STUDY: 02/18/2019 FINDINGS: The heart remains normal in size. There is a tiny left apical pneumothorax the pleural separation of 2 mm. There are developing patchy airspace opacities the right lung base. There are persistent patchy airspace opacities at the left lung base. There is improved aeration of the left upper lung zone.[ IMPRESSION: 1. Interval decrease in the size of the tiny left apical pneumothorax which has a pleural separation of 2 mm 2. Persistent patchy airspace opacities the left lung base with improving aeration of the left upper lung zone 2. Developing patchy airspace opacities the right lung base Electronically signed by: Aric Vyas M.D. 02/19/2019 7:16 AM Dictated: 02/19/19713 Transcribed: 02/19/19713 CBC No Diff Laboratory: [facility] Laboratory [address] [facility] [address] tel: 19-Feb-2019 7:15 WBC 14.52 K/uL (above high Range: 4.8-1 0.8 K/uL threshold) RBC 3.94 {M/uL} (below low Range: 4.2-5 .4 M/uL threshold) HEMOGLOBIN 11.7 g/dL (below low Range: 12.0-16.0 g/dL threshold) HEMATOCRIT 34.8 % (below low Range: 37- 47 % threshold) MCV 88.3 fL Range: 80-100 fL MCH 29.7 pg Range: 25-34 pg MEAN CORPUSCULAR HGB CONC 33.6 Range: 3 2-36 g/dL g/dL RED CELL DISTRIBUTION WIDTH SD Range: 3 6.4-46.3 fL 42.1 fL RED CELL DISTRIBUTION WIDTH CV Range: 1 1.5-14.5 % 13.1 % PLATELET COUNT 164 K/uL Range: 130-400 K/uL MEAN PLATELET VOLUME 9.9 fL Range: 7.4- 10.4 fL PT/INR Laboratory: [facility] Laboratory Comments: Taco gillis Note: february [address] [place] [id number] tel: blood if O K 19-Feb-2019 7:15 Prothrombin Time 10.5 {Seconds} Range: 9.0-12.0 Seconds INR 1.0 Range: 0.9-1.1 PTT Laboratory: [facility] Laboratory Comments: Taco gillis Note: february [address]. [place] [id number] tel: blood if O K 19-Feb-2019 7:15 PTT PATIENT 25.7 {Seconds} Range: 21.0- 31.0 Seconds Comments: Therapeuti c APTT range is 46.0 - 66.4 seconds PARTIAL THROMBOPLASTIN RATIO 0.9 Creatinine, Serum Laboratory: [facility] Laboratory [address] [place] [address] tel: 19-Feb-2019 7:15 CREATININE 0.75 mg/dl Range: 0.6-1.2 mg /dl Estimated Creatinine Clearance Range: m l/min 93.3 ml/min Comments: Est. Creat inine Clearance (Mod Cockcroft-Gault) for pharmacydosing purposes. Estimated GFR ( Comments: Units: ml/min per Chilean) 106.2 1.73 meters squaredT he estimated GFR (CKD-E PI equation) has not be en validatedfor [facility] settings and may not be an accurate reflectiono f renal function in critical ly ill patients or those wi thrapidly changing renal funct ion (e.g. ROBINSON). Estimated GFR (Non- Comments: Uni ts: ml/min per [place]an) 91.6 1.73 meters squaredT he estimated GFR (CKD-E PI equation) has not be en validatedfor [facility] settings and may not be an accurate reflectiono f renal function in critical ly ill patients or those wi thrapidly changing renal funct ion (e.g. ROBINSON). Vital Signs 16-Feb-2019 9:51 Systolic 132 mm[Hg] Diastolic 79 mm[Hg] Weight 173.6 lb Height 69.5 in BSA Calculated 1.96 m2 BMI Calculated 25.27 kg/m2 Temperature 97.2 f Respiration 18 /min Heart Rate 108 /min O2 Saturation 96 % Comments: Source: RA Encounters Appointment; Jose Rafael Campbell M.D. 18-Feb-2019 7:30 Encounter Diagnosis: Problem not documented Appointment; Jose Rafael Campbell M.D. 16-Feb-2019 9:15 Encounter Diagnosis: Problem not documented Appointment; Jose Rafael Campbell M.D. 03-Feb-2019 11:15 Encounter Diagnosis: Problem not documented Appointment; Jose Rafael Campbell M.D. 25-Nov-2018 10:15 Encounter Diagnosis: Problem not documented Appointment; Amada Camarillo DO 05-Sep-2018 13:15 Encounter Diagnosis: Problem not documented Appointment; Jose Rafael Campbell M.D. 07-Aug-2018 11:15 Encounter Diagnosis: Problem not documented Appointment; Pulmonary, Funct Testing 04-Aug-2018 7:30 Encounter Diagnosis: Problem not documented Appointment; Francine Burrows PA-C 15-Jul-2018 10:15 Encounter Diagnosis: Problem not documented Appointment; Jose Rafael Campbell M.D. 07-Jul-2018 10:15 Encounter Diagnosis: Problem not documented Appointment; Jose Rafael Campbell M.D. 17-Jun-2018 9:30 Encounter Diagnosis: Problem not documented Appointment; Francine Burrows PA-C 02-Jun-2018 10:45 Encounter Diagnosis: Problem not documented Appointment; Bel Staton M.D. 29-Apr-2018 12:40 Encounter Diagnosis: Problem not documented Appointment; Bel Staton M.D. 8 11:20 Encounter Diagnosis: Problem not documented Appointment; Bel Staton M.D. 7 10:40 Encounter Diagnosis: Problem not documented Appointment; Bel Staton M.D. 14:00 Encounter Diagnosis: Problem not documented Appointment; Donnie Pramar M.D. 25-Jul-2017 13:40 Encounter Diagnosis: Problem not documented Appointment; Bel Staton M.D. 10:40 Encounter Diagnosis: Problem not documented
== END 2019-02-19 12:09 | disposition home or self-care (01) ==
LOC: 3W 06:20 → ASU 06:20